=== PATIENT | female | born 1990 | race African-American/Black ===

== ENCOUNTER 2016-10-09 20:47 | Emergency (ER) | payer OTHER ==
[2016-10-09 20:55] VITALS: BP 123/79; PULSE 109; TEMP 98; BMI 39.5
--- NOTE | 2016-10-09 21:19 | PDOC ---
History of Present Illness - General Chief Complaint: Abscess Boil Stated Complaint: CYST Time Seen by Provider: 10/09/16 21:10 History Source: Patient Exam Limitations: No Limitations - History of Present Illness Initial Comments: 10/09/16 21:19 26 yr female with c/o abscess x2 to right hip area for 3 days. Pt has had them before in [place]. Pt denies fever or chills, denies medical history. Severity: Yes: mild Location: reports: torso Past History - Past Medical History Allergies/Adverse Reactions: Allergies Allergy/AdvReac Type Severity Reaction Status Date / Time sulfamethoxazole Allergy Rash Verified 10/09/16 20:55 [From Bactrim] trimethoprim [From Bactrim] Allergy Rash Verified 10/09/16 20:55 Home Medications: Ambulatory Orders Clindamycin [Cleocin -] 300 mg PO Q6HPO #28 capsule 10/09/16 Ibuprofen 800 mg PO TID PRN #21 tablet 10/09/16 Other medical history: denies - Psycho/Social/Smoking Cessation Hx Anxiety: No Suicidal Ideation: No Smoking History: Never smoked Have you smoked in the past 12 months: No Hx Alcohol Use: No Drug/Substance Use Hx: No Substance Use Type: None Review of Systems - Review of Systems Able to Perform ROS?: Yes Is the patient limited [place] proficient: No Constitutional: No: Symptoms Reported HEENTM: No: Symptoms Reported Respiratory: No: Symptoms reported Cardiac (ROS): No: Symptoms Reported ABD/GI: No: Symptoms Reported : No: Symptoms Reported Musculoskeletal: No: Symptoms Reported Integumentary: Yes: See HPI Neurological: No: Symptoms reported *Physical Exam - Vital Signs Last Vital Signs Temp Pulse Resp BP Pulse Ox 98 F 109 H 20 123/79 99 10/09/16 20:53 10/09/16 20:53 10/09/16 20:53 10/09/16 20:53 10/09/16 20:53 - Physical Exam General Appearance: Yes: Nourished, Appropriately Dressed HEENT: positive: EOMI, LYLY, Normal ENT Inspection, TMs Normal, Pharynx Normal Neck: positive: Supple Respiratory/Chest: positive: Lungs Clear, Normal Breath Sounds Cardiovascular: positive: Regular Rhythm, Regular Rate Gastrointestinal/Abdominal: positive: Normal Bowel Sounds, Soft Musculoskeletal: positive: Normal Inspection Extremity: positive: Normal Capillary Refill, Normal Inspection, Normal Range of Motion Integumentary: positive: Normal Color, Dry, Warm, Other (right flank and right hip with superfical abscess 2cm drainaing scant amount of pus, indurated ) Neurologic: positive: Fully Oriented, Alert, Normal Mood/Affect, Normal Response , Motor Strength 5/5 Procedures - Incision and Drainage I&D Site: Right: Other (hip 2cm indurated abscess with point center of fluctuance pus expressed with manual expression, culture obtained) Betadine cleansed: Yes Medical Decision Making - Medical Decision Making 10/09/16 21:28 cc: abcess 1. right hip 2cm with induration and point center of fluctunace draining pus on arrival, expressed more pus, pt refused needle aspiration or I &d 2. right flank with scabbed area 1cm with induration no fluctuance will dc with clinda (pt allergic to bactrim states "swells up her body") frequent warm moist compresses and follow up with I have discussed that I &D may be necessary at some point if not improving in 48hrs to follow with or return to ER pt understands the dc inst all questions asked and answered at dc. *DC/Admit/Observation/Transfer Diagnosis at time of Disposition: Abscess - Discharge Dispostion Disposition: HOME Condition at time of disposition: Fair - Prescriptions Prescriptions: Clindamycin [Cleocin -] 300 mg PO Q6HPO #28 capsule Ibuprofen 800 mg PO TID PRN #21 tablet PRN Reason: Severe Pain - Referrals Referrals: Mason Lopez [Primary Care Provider] - Alex Meneses MD [Staff Physician] - - Patient Instructions Additional Instructions: frequent warm moist compresses frequent warm baths take the antibiotic as directed follow with the surgeon for further care if the abscess gets larger and does not improve
[2016-10-09] MEDS ORDERED: IBUPROFEN 600 MG TABLET (FP) PO ONE (21:24)
[2016-10-09] MEDS ORDERED: IBUPROFEN 400 MG TABLET (FP) PO ONE (21:25)
== END 2016-10-09 21:44 | disposition home or self-care (01) ==
LOC: JERFT 20:47
DX: L02.415 Cutaneous abscess of right lower limb (principal)
CPT/HCPCS: 87070; 87186; 87205; 99281-25